=== PATIENT | male | born 1980 | race Caucasian/White ===

== ENCOUNTER 2021-02-02 14:41 | Emergency (ER) | payer SELFPAY ==
[2021-02-02 15:28] LABS: Absolute Lymphocytes (CBC) 1.9 K/uL (0.7-4.9); Basophils % 0.5 % (0-1.3); Lymphocytes % 29.2 % (15.3-44.8); MPV 7.1 fL (7.6-11.3); RBC Red Blood Cell Count 4.44 M/uL (4.33-5.43)
[2021-02-02 15:38] LABS: Urine Blood Negative (Negative); Urine Glucose Negative (Negative); Urine Protein Negative (Negative); Urine Specific Gravity <=1.005 (1.005-1.030)
[2021-02-02 15:47] LABS: ALT/SGPT 199 U/L (12-78); AST/SGOT 203 U/L (15-37); Albumin 3.5 g/dL (3.4-5.0); Alkaline Phosphatase 97 U/L (45-117); BUN Blood Urea Nitrogen 6 mg/dL (7-18); Bicarbonate 29 mmol/L (21-32); Bilirubin Direct < 0.1 mg/dL (0-0.2); Bilirubin Total 0.3 mg/dL (0.2-1.0); Glucose Level 75 mg/dL (74-106); Magnesium 2.1 mg/dL (1.8-2.4); NT PRO-BNP 26 pg/mL (<125); Potassium 3.7 mmol/L (3.5-5.1); Protein, Total 7.5 g/dL (6.4-8.2); Protime INR 0.9; Sodium Level 144 mmol/L (136-145); Troponin (Emerg Dept Use Only) 0.02 ng/mL (0.0-0.045)
--- NOTE | 2021-02-02 15:48 | RAD REPORT ---
EXAM DESCRIPTION: Francisco Javier Single View02/02/2021 3:40 pm CLINICAL HISTORY: Chest pain COMPARISON: 2007 FINDINGS: The lungs appear clear of acute infiltrate. The heart is normal size IMPRESSION: No acute abnormalities displayed
--- NOTE | 2021-02-02 15:51 | RAD REPORT ---
EXAM DESCRIPTION: CT - Head Brain Wo Cont - 02/02/2021 3:35 pm CLINICAL HISTORY: Seizure COMPARISON: 2007 TECHNIQUE: Computed axial tomography of the head was obtained. IV contrast was not requested. All CT scans are performed using dose optimization technique as appropriate and may include automated exposure control or mA/KV adjustment according to patient size. FINDINGS: An intracranial bleed is not seen . The ventricles are normal in caliber. No extra-axial fluid collection is noted. Fluid within the sinuses/ mastoids is not seen. IMPRESSION: No acute intracranial abnormality is seen. If patient's symptoms persist MRI of the bra in would be recommended.
[2021-02-02 16:08] LABS: Barbiturates NEGATIVE (NEGATIVE); Benzodiazepines NEGATIVE (NEGATIVE); Cocaine NEGATIVE (NEGATIVE); METHAMPHETAM POSITIVE (NEGATIVE); Methadone NEGATIVE (NEGATIVE); Opiates NEGATIVE (NEGATIVE); Phencyclidine NEGATIVE (NEGATIVE); THC Cannibis POSITIVE (NEGATIVE)
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
[2021-02-02 17:32] VITALS: BP 176/120; O2SAT 100
--- NOTE | 2021-02-03 16:01 | EKG ---
Test Date: 2021-02-02 Test Time: 15:11:46 Cartography Supervisor: TONY MEASUREMENT RESULTS: Intervals: Rate: 73 WA: 166 QRSD: 112 QT: 410 QTc: 451 Firth: P: 71 WA: 166 QRS: 7 T: 57 INTERPRETIVE STATEMENTS: Normal sinus rhythm with sinus arrhythmia Possible Left atrial enlargement Incomplete right bundle branch block Borderline ECG Compared to ECG 01/12/2015 23:07:51 No significant changes Electronically Signed On 02-03-21 16:00:01 CDT by Krishna Eaton
== END 2021-02-02 16:50 | disposition home or self-care (01) ==
LOC: ER 14:41
DX: F15.10 Other stimulant abuse, uncomplicated (principal); F12.10 Cannabis abuse, uncomplicated; F17.210 Nicotine dependence, cigarettes, uncomplicated; I25.2 Old myocardial infarction; Z88.0 Allergy status to penicillin
CPT/HCPCS: 36415; 70450; 71045; 80048; 80076; 80307; 81003; 83735; 83880; 84484; 85025; 85610; 93005; 99284

== ENCOUNTER 2022-04-14 22:52 | Emergency (ER) | payer SELFPAY ==
[2022-04-14 23:50] LABS: Absolute Lymphocytes (CBC) 1.6 K/uL (0.7-4.9); Hematocrit 41.7 % (39.6-49.0); Lymphocytes % 22.7 % (15.3-44.8); MCV 96.9 fL (80-100); MPV 6.5 fL (7.6-11.3)
[2022-04-14 23:54] LABS: Protime INR 0.96
[2022-04-14] MEDS ORDERED: LABETALOL 20 MG/4ML SYRINGE IV ONE (23:56)
[2022-04-15 00:04] LABS: Albumin 3.6 g/dL (3.4-5.0); Bilirubin Total 0.9 mg/dL (0.2-1.0); Potassium 3.5 mmol/L (3.5-5.1); Protein, Total 7.8 g/dL (6.4-8.2)
--- NOTE | 2022-04-15 02:38 | ER ---
Nurse's Notes [facility] Name: Donald Webster Age: 41 yrs Sex: Male : 1980 Arrival Date: 04/14/2022 Time: 22:57 Bed 19 Private MD: Diagnosis: Abdominal pain, unspecified;Constipation, unspecified;Hemoptysis Presentation: 04/14 23:03 Chief complaint: EMS states: Abdominal pain and c/o of coughing up blood. Coronavirus ke1 screen: Vaccine status: Patient reports being unvaccinated. Ebola Screen: No symptoms or risks identified at this time. Initial Sepsis Screen: Does the patient meet any 2 criteria? No. Patient's initial sepsis screen is negative. Does the patient have a suspected source of infection? No. Patient's initial sepsis screen is negative. Risk Assessment: Do you want to hurt yourself or someone else? Patient reports no desire to harm self or others. Onset of symptoms was April 14, 2022 at 20:00. 23:03 Method Of Arrival: EMS: [place] [id number] 23:03 Acuity: KENNY 3 ke1 Triage Assessment: 23:06 General: Appears in no apparent distress. Behavior is appropriate for age. Pain: ke1 Complains of pain in abdomen Pain does not radiate. Pain currently is 4 out of 10 on a pain scale. at worst was 4 out of 10 on a pain scale. level that patient reports is acceptable is 5 out of 10 on a pain scale. Neuro: Level of Consciousness is awake, alert, Oriented to person, place, time, situation. Cardiovascular:. Respiratory: Airway is patent Respiratory effort is even, unlabored, Respiratory pattern is regular, symmetrical. GI: Abdomen is flat. Historical: - Allergies: 23:05 PENICILLINS; ke1 - PMHx: 23:05 CVA; Myocardial infarction; ke1 - Immunization history:: Client reports having NOT received the Covid vaccine. - Social history:: Smoking status: Patient reports the use of cigarette tobacco products, smokes one-half pack cigarettes per day. - Family history:: not pertinent. - Hospitalizations: : No recent hospitalization is reported. Screenin:08 Abuse screen: Denies threats or abuse. Nutritional screening: No deficits noted. ke1 Tuberculosis screening: No symptoms or risk factors identified. Fall Risk None identified. Assessment: 23:41 Reassessment: see triage. ke1 04/15 01:00 Reassessment: Patient appears in no apparent distress at this time. Patient and/or ke1 family updated on plan of care and expected duration. Pain level reassessed. Patient is alert, oriented x 3, equal unlabored respirations, skin warm/dry/pink. Patient denies pain at this time. Patient states feeling better. 02:20 Reassessment: No changes from previously documented assessment. ke1 Vital Signs: 04/14 23:03 BP 175 / 134; Pulse 87; Resp 23; Temp 98.6; Pulse Ox 100% on R/A; Weight 66.22 kg; ke1 Height 5 ft. 11 in. (180.34 cm); Pain 4/10; 23:41 BP 215 / 149; Pulse 81; Resp 20; Pulse Ox 100% ; Pain 2/10; ke1 04/15 00:06 BP 200 / 131; Pulse 67; ke1 00:34 BP 206 / 141; Pulse 68; Resp 20; Pulse Ox 100% ; ke1 02:40 BP 170 / 94; Pulse 70; Resp 19; Pulse Ox 100% ; ke1 04/14 23:03 Body Mass Index 20.36 (66.22 kg, 180.34 cm) ke ED Course: 04/14 22:57 Patient arrived in ED. rn 22:58 Jonas Adhikari MD is Attending Physician. rn 23:00 Maintain EMS IV. Dressing intact. Site clean \T\ dry. Gauge \T\ site: 18 g L AC. ke 1 23:02 Ron Kapadia, RN is Primary Nurse. ke1 23:05 Triage completed. ke1 23:08 Arm band placed on. ke1 23:08 Bed in low position. Call light in reach. ke1 04/15 01:01 CT Abd/Pelvis - IV Contrast Only In Process Unspecified. EDMS 01:01 CT Chest For PE Angio In Process Unspecified. EDMS 02:40 No provider procedures requiring assistance completed. ke1 02:50 IV discontinued. ke1 Administered Medications: 04/14 23:52 Drug: Labetalol 10 mg Route: IV; Rate: 1 calculated rate; Site: left antecubital; ke1 23:57 Follow up: IV Status: Infusion continued ke1 04/15 02:41 Follow up: Response: No adverse reaction ke1 Medication: 02:40 VIS not applicable for this client. ke1 Outcome: 02:37 Discharge ordered by . rn 02:50 Discharged to home ambulatory. ke1 02:50 Condition: good 02:50 Discharge instructions given to patient. 02:52 Patient left the ED. ke1 Signatures: Dispatcher [employer] EDJonas Fry MD MD rn Ebrottie, Kouassi, RN RN ke1
--- NOTE | 2022-04-15 02:38 | EDPHYS ---
Physician Documentation [facility] Name: Donald Webster Age: 41 yrs Sex: Male : 1980 Arrival Date: 04/14/2022 Time: 22:57 Bed 19 Private MD: ED Physician Jonas Adhikari HPI: 04/14 23:08 This 41 yrs old Male presents to ER via EMS with complaints of coughing blood. rn 23:08 The patient or guardian reports cough, described as moderate. Onset: The rn symptoms/episode began/occurred today. Severity of symptoms: At their worst the symptoms were moderate, in the emergency department the symptoms have improved. Modifying factors: The symptoms are alleviated by nothing, the symptoms are aggravated by nothing. Associated signs and symptoms: Pertinent positives: Hemoptysis. The patient has not experienced similar symptoms in the past. The patient has not recently seen a physician. Patient reports several episodes of hemoptysis today. Denies any fever. Is a smoker. Denies trauma. Denies chest pain. Is a daily drinker and reports lower abdominal pain and swelling. Has not had a bowel movement in 3 days. Asked several times and states is not throwing up blood, is obvious to him that he is coughing up blood.. Historical: - Allergies: 23:05 PENICILLINS; ke1 - PMHx: 23:05 CVA; Myocardial infarction; ke1 - Immunization history:: Client reports having NOT received the Covid vaccine. - Social history:: Smoking status: Patient reports the use of cigarette tobacco products, smokes one-half pack cigarettes per day. - Family history:: not pertinent. - Hospitalizations: : No recent hospitalization is reported. ROS: 23:08 Constitutional: Negative for fever, chills, and weight loss, Eyes: Negative for injury, rn pain, redness, and discharge, Neck: Negative for injury, pain, and swelling, Cardiovascular: Negative for chest pain, palpitations, and edema, Respiratory: positive for hemoptysis and shortness of breath Abdomen/GI: Positive for abdominal pain and swelling Back: Negative for injury and pain, MS/Extremity: Negative for injury and deformity, Skin: Negative for injury, rash, and discoloration, Neuro: Negative for headache, weakness, numbness, tingling, and seizure. Exam: 23:08 Constitutional: Well nourished patient who is awake, alert, and in no acute distress. rn Head/Face: Normocephalic, atraumatic. Eyes: Periorbital areas with no swelling, redness, or edema. Cardiovascular: Regular rate and rhythm. No pulse deficits. Respiratory: mild tachypnea without retractions. Speaking full sentences Abdomen/GI: Soft, mild tenderness lower abdomen without masses Skin: Warm, dry MS/ Extremity: Pulses equal, no cyanosis Neuro: Awake and alert, GCS 15 Vital Signs: 23:03 BP 175 / 134; Pulse 87; Resp 23; Temp 98.6; Pulse Ox 100% on R/A; Weight 66.22 kg; ke1 Height 5 ft. 11 in. (180.34 cm); Pain 4/10; 23:41 BP 215 / 149; Pulse 81; Resp 20; Pulse Ox 100% ; Pain 2/10; ke1 04/15 00:06 BP 200 / 131; Pulse 67; ke1 00:34 BP 206 / 141; Pulse 68; Resp 20; Pulse Ox 100% ; ke1 02:40 BP 170 / 94; Pulse 70; Resp 19; Pulse Ox 100% ; ke1 04/14 23:03 Body Mass Index 20.36 (66.22 kg, 180.34 cm) ke MDM: 04/14 22:58 Patient medically screened. rn 04/15 02:35 Differential Diagnosis: Bronchitis Upper Respiratory Infection Viral Syndrome Pneumonia rn Other PE, lung cancer, smoking related illness, constipation, drug related illness. Data reviewed: vital signs, nurses notes, lab test result(s), EKG, radiologic studies, CT scan, and as a result, I will discharge patient. Counseling: I had a detailed discussion with the patient and/or guardian regarding: the historical points, exam findings, and any diagnostic results supporting the discharge/admit diagnosis, lab results, radiology results, the need for outpatient follow up, to return to the emergency department if symptoms worsen or persist or if there are any questions or concerns that arise at home. Response to treatment: the patient's symptoms have markedly improved after treatment, and as a result, I will discharge patient. Special discussion: I discussed with the patient/guardian in detail that at this point there is no indication for admission to the hospital. It is understood, however, that if the symptoms persist or worsen the patient needs to return immediately for re-evaluation. Based on the history and exam findings, there is no indication for further emergent testing or inpatient evaluation. I discussed with the patient/guardian the need to see the primary care provider for further evaluation of the symptoms. I discussed with the patient/guardian the need to see the mother helper for further evaluation of the symptoms. ED course: No hemoptysis since arrival, EMS did not see blood, normal H/H and no acute findings in CT chest/abdomen/pelvis. NO oxygen requirement. Sleeping comfortably. Will dc home with return precautions. Recommend smoking cessation.. 04/14 23:00 Order name: CBC with Diff; Complete Time: 00:00 rn 04/14 23:00 Order name: CMP; Complete Time: 00: rn 04/14 23:00 Order name: Lipase; Complete Time: : rn 04/14 23:00 Order name: BNP; Complete Time: 00: rn 04/14 23:00 Order name: PT-INR; Complete Time: 00:00 rn 04/14 23:00 Order name: Ptt, Activated; Complete Time: 00:00 rn 04/14 23:00 Order name: CT Abd/Pelvis - IV Contrast Only rn 04/14 23:00 Order name: IV Saline Lock; Complete Time: 23:40 rn 04/14 23:00 Order name: Labs collected and sent; Complete Time: 23:40 rn 04/14 23:00 Order name: CT Chest For PE Angio rn 04/14 23:00 Order name: SARS-COV-2 RT PCR (Document "Date of Onset" if Symptomatic); Complete Time: rn 00:32 04/14 23:00 Order name: Cardiac monitoring; Complete Time: 23:08 rn 04/14 23:00 Order name: O2 Sat Monitoring; Complete Time: 23:08 rn Administered Medications: 04/14 23:52 Drug: Labetalol 10 mg Route: IV; Rate: 1 calculated rate; Site: left antecubital; ke 23:57 Follow up: IV Status: Infusion continued ke1 04/15 02:41 Follow up: Response: No adverse reaction ke Disposition Summary: 04/15/22 02:37 Discharge Ordered Location: Home rn Problem: new rn Symptoms: have improved rn Condition: Stable rn Diagnosis - Abdominal pain, unspecified rn - Constipation, unspecified rn - Hemoptysis rn Followup: rn - With: Private Physician - When: As needed - Reason: Recheck today's complaints, Re-evaluation by your physician Discharge Instructions: - Discharge Summary Sheet rn - Abdominal Pain, Adult rn - Constipation, Adult rn - Hemoptysis rn Forms: - Medication Reconciliation Form rn - Thank You Letter rn - Antibiotic journeyman electrician - Prescription Opioid Use rn Signatures: Dispatcher [employer] Jonas Dickey MD MD rn Ebrottie, Kouassi, RN RN ke1
[2022-04-15 02:58] VITALS: TEMP 98.6; O2SAT 100
[2022-04-15 03:06] VITALS: BP 170/94
--- NOTE | 2022-04-15 10:16 | RAD REPORT ---
EXAM DESCRIPTION: CT - Abdomen Pelvis W Contrast - 04/15/2022 6:00 am CLINICAL HISTORY: Abd pain and distension TECHNIQUE: Axial computed tomography images of the abdomen and pelvis with intravenous contrast. S agittal and coronal reformatted images were created and reviewed. This CT exam was performed using one or more of the following dose reduction techniques: automated exposure control, adjustment of t he mA and/or kV according to patient size, and/or use of iterative reconstruction technique. COMPARISON: No relevant prior studies available. FINDINGS: Lung bases: Left lower lobe calcified granuloma. ABDOMEN: Liver: The liver is diffusely low in density compatible with steatosis. Gallbladder and bile ducts: Unremarkable. No calcified stones. No ductal dilation. Pancreas: Unremarkable. No mass. No ductal dilation. Spleen: Unremarkable. No splenomegaly. Adrenals: Unremarkable. No mass. Kidneys and ureters: 2.4 cm right renal cyst. Additional subcentimeter cortical hypodensities bilat erally which are too small to characterize. No follow-up imaging is necessary. No calculi. No hydrone phrosis. Stomach and bowel: Moderate stool proximal to mid large bowel. No obstruction. No appreciable mucos al thickening. PELVIS: Appendix: Normal caliber appendix. No findings to suggest acute appendicitis. Bladder: The urinary bladder is distended. Reproductive: Unremarkable as visualized. ABDOMEN and PELVIS: Intraperitoneal space: Unremarkable. No free air. No significant fluid collection. Bones/joints: Grade 1 retrolisthesis of L5 on S1. Moderate degenerative changes at this level. No a cute fracture. No dislocation. Soft tissues: Unremarkable. Vasculature: Mild atherosclerotic disease. No abdominal aortic aneurysm. Lymph nodes: Unremarkable. No enlarged lymph nodes. IMPRESSION: 1. No acute abnormality identified within the abdomen and pelvis. 2. Other findings as above. Electronically signed by: April Cunningham MD 04/15/2022 1:27 AM CDT Due to temporary technical issues with the PACS/Fluency reporting system, reports are being signed by the in house radiologists without review as a courtesy to insure prompt reporting. The interpreting radiologist is fully responsible for the content of the report.
--- NOTE | 2022-04-15 11:30 | RAD REPORT ---
EXAM DESCRIPTION: CT - Chest For Pe Angio - 04/15/2022 6:01 am ADDENDUM #1 Re: AIDOC algorithm findings: A false positive is noted from the algorithm in a left-sided pulmonary venous (not pulmonary arterial) branch. No evidence of acute pulmonary embolus. Electronically signed by: López Hernández MD 04/15/2022 4:27 AM CDT End of Addendum EXAM DESCRIPTION: CT Angiography Chest With Intravenous Contrast CLINICAL HISTORY: The patient is 41 years old and is Male; smoker, hemoptysis TECHNIQUE: Axial computed tomographic angiography images of the chest with intravenous contrast. T his CT exam was performed using one or more of the following dose reduction techniques: automated e xposure control, adjustment of the mA and/or kV according to patient size, and/or use of iterative re construction technique. MIP reconstructed images were created and reviewed. Oblique reformatted images were created and reviewed. DLP: 1115 mGy*cm COMPARISON: None. FINDINGS: PULMONARY ARTERIES: Unremarkable. No pulmonary embolism. AORTA: No acute findings. No thoracic aortic aneurysm. LUNGS: Partially calcified pleural-based nodule in the left lower lobe measuring 6.5 cm. No focal consolidation. PLEURAL SPACE: No significant effusion. No pneumothorax. HEART: Unremarkable. No cardiomegaly. No significant pericardial effusion. No evidence of RV dysfunction. BONES/JOINTS: No acute fracture. No dislocation. SOFT TISSUES: Unremarkable. LYMPH NODES: Unremarkable. No enlarged lymph nodes. LIVER: Hepatic steatosis. KIDNEYS AND URETERS: Right renal cyst measuring 2.4 cm. IMPRESSION: 1. No pulmonary embolism. No acute intrathoracic abnormality. 2. Partially calcified pleural-based nodule in the left lower lobe measuring 6.5 cm. 3. Hepatic steatosis. Electronically signed by: Rg Chavez DO 04/15/2022 1:40 AM CDT Due to temporary technical issues with the PACS/Fluency reporting system, reports are being signed by the in house radiologists without review as a courtesy to insure prompt reporting. The interpreting radiologist is fully responsible for the content of the report.
== END 2022-04-15 02:52 | disposition home or self-care (01) ==
LOC: ER 22:52
DX: R04.2 Hemoptysis (principal); R10.9 Unspecified abdominal pain; K59.00 Constipation, unspecified; F17.210 Nicotine dependence, cigarettes, uncomplicated; Z88.0 Allergy status to penicillin; Z86.73 Personal history of transient ischemic attack (TIA), and cerebral infarction without residual deficits
CPT/HCPCS: 36415; 71275; 74177; 80053; 83690; 83880; 85025; 85610; 85730; 96374; 99284; Q9967; U0003

== ENCOUNTER 2022-04-15 06:46 | Emergency (ER) | payer SELFPAY ==
[2022-04-15 07:40] LABS: Urine Blood Trace-intact (Negative); Urine Glucose Negative (Negative); Urine Protein 2+ (Negative); Urine Specific Gravity 1.025 (1.005-1.030); Urine pH 6.5 (5.0-7.0)
[2022-04-15 08:02] LABS: Barbiturates NEGATIVE (NEGATIVE); Benzodiazepines NEGATIVE (NEGATIVE); Cocaine NEGATIVE (NEGATIVE); METHAMPHETAM POSITIVE (NEGATIVE); Methadone NEGATIVE (NEGATIVE); Opiates NEGATIVE (NEGATIVE); Phencyclidine NEGATIVE (NEGATIVE); THC Cannibis POSITIVE (NEGATIVE)
--- NOTE | 2022-04-15 08:50 | EDPHYS ---
Physician Documentation [facility] Name: Donald Webster Age: 41 yrs Sex: Male : 1980 Arrival Date: 04/15/2022 Time: 06:48 Bed 18 Private MD: ED Physician Oscar Ashraf HPI: 04/15 08:44 This 41 yrs old Male presents to ER via Ambulatory with complaints of Psych gracia Problem. 08:44 The patient presents to the emergency department with anxiety, paranoia. Onset: The gracia symptoms/episode began/occurred 3 day(s) ago. Past psychiatric history: Prior diagnosis: bipolar disorder, schizophrenia. Associated signs and symptoms: The patient has no apparent associated signs or symptoms. Severity of symptoms: At their worst the symptoms were mild in the emergency department the symptoms are unchanged. The patient has not experienced similar symptoms in the past. Historical: - Allergies: 07:17 PENICILLINS; ss - PMHx: 07:17 CVA; Myocardial infarction; ss - Social history:: Smoking status: Patient reports the use of cigarette tobacco products. - Family history:: not pertinent. ROS: 08:44 Constitutional: Negative for fever, chills, and weight loss, Eyes: Negative for injury, gracia pain, redness, and discharge, ENT: Negative for injury, pain, and discharge, Neck: Negative for injury, pain, and swelling, Cardiovascular: Negative for chest pain, palpitations, and edema, Respiratory: Negative for shortness of breath, cough, wheezing, and pleuritic chest pain, Abdomen/GI: Negative for abdominal pain, nausea, vomiting, diarrhea, and constipation, Back: Negative for injury and pain, : Negative for injury, bleeding, discharge, and swelling, MS/Extremity: Negative for injury and deformity, Skin: Negative for injury, rash, and discoloration, Neuro: Negative for headache, weakness, numbness, tingling, and seizure, Allergy/Immunology: Negative for hives, rash, and allergies, Endocrine: Negative for neck swelling, polydipsia, polyuria, polyphagia, and marked weight changes, Hematologic/Lymphatic: Negative for swollen nodes, abnormal bleeding, and unusual bruising. 08:44 Psych: Positive for anxiety. Exam: 08:44 Constitutional: This is a well developed, well nourished patient who is awake, alert, gracia and in no acute distress. Head/Face: Normocephalic, atraumatic. Eyes: Pupils equal round and reactive to light, extra-ocular motions intact. Lids and lashes normal. Conjunctiva and sclera are non-icteric and not injected. Cornea within normal limits. Periorbital areas with no swelling, redness, or edema. ENT: Nares patent. No nasal discharge, no septal abnormalities noted. Tympanic membranes are normal and external auditory canals are clear. Oropharynx with no redness, swelling, or masses, exudates, or evidence of obstruction, uvula midline. Mucous membranes moist. Neck: Trachea midline, no thyromegaly or masses palpated, and no cervical lymphadenopathy. Supple, full range of motion without nuchal rigidity, or vertebral point tenderness. No Meningismus. Chest/axilla: Normal chest wall appearance and motion. Nontender with no deformity. No lesions are appreciated. Cardiovascular: Regular rate and rhythm with a normal S1 and S2. No gallops, murmurs, or rubs. Normal PMI, no JVD. No pulse deficits. Respiratory: Lungs have equal breath sounds bilaterally, clear to auscultation and percussion. No rales, rhonchi or wheezes noted. No increased work of breathing, no retractions or nasal flaring. Abdomen/GI: Soft, non-tender, with normal bowel sounds. No distension or tympany. No guarding or rebound. No evidence of tenderness throughout. Back: No spinal tenderness. No costovertebral tenderness. Full range of motion. Male : Normal genitalia with no discharge or lesions. Skin: Warm, dry with normal turgor. Normal color with no rashes, no lesions, and no evidence of cellulitis. MS/ Extremity: Pulses equal, no cyanosis. Neurovascular intact. Full, normal range of motion. Neuro: Awake and alert, GCS 15, oriented to person, place, time, and situation. Cranial nerves II-XII grossly intact. Motor strength 5/5 in all extremities. Sensory grossly intact. Cerebellar exam normal. Normal gait. 08:44 Psych: Behavior/mood is pleasant, Affect is calm, Oriented to person, place, time, Patient has no thoughts/intents to harm self or others. Judgement / Insight is normal. Memory is normal. 08:50 ECG was reviewed by the Attending Physician. [facility] Vital Signs: 07:14 BP 195 / 124 LA Sitting (auto/reg); Resp 20 S; Pulse Ox 97% on R/A; Pain 0/10; mb8 07:14 Pulse 86; Pulse Ox 98% on R/A; ss 08:00 BP 197 / 115 Supine; Pulse 65 MON; mb8 08:02 BP 199 / 117 Sitting; Pulse 70; mb8 08:04 BP 175 / 135 Standing; Pulse 67; mb8 NIH Stroke Scale Scores: 08:44 NIHSS Score: 0 [facility] Harmeet Coma Score: 08:44 Eye Response: spontaneous(4). Verbal Response: oriented(5). Motor Response: obeys [facility] commands(6). Total: 15. MDM: 07:12 Patient medically screened. gracia 08:47 Differential diagnosis: drug withdrawal. acute psychotic break, depression, psychosis gracia secondary to non-compliance. Data reviewed: vital signs, nurses notes, lab test result(s), CBC, drug level(s), electrolytes, hepatic panel, EKG. Data interpreted: school lunch monitor: rate is 67 beats/min, rhythm is regular. Counseling: I had a detailed discussion with the patient and/or guardian regarding: the historical points, exam findings, and any diagnostic results supporting the discharge/admit diagnosis, lab results. 04/15 07:15 Order name: Urine Drug Screen [facility] 04/15 07:15 Order name: EKG; Complete Time: 07:16 [facility] 04/15 07:15 Order name: EKG - Nurse/Tech; Complete Time: 08:20 [facility] 04/15 07:40 Order name: Urine Dipstick-Ancillary EDRI 04/15 07:15 Order name: Suicide Screening ([place]); Complete Time: 07:43 [facility] 04/15 07:15 Order name: Urine Dipstick-Ancillary (obtain specimen); Complete Time: 07:42 [facility] EC:50 Rate is 63 beats/min. Rhythm is regular. QRS [place] is Normal. [place] interval is normal. QRS gracia interval is normal. QT interval is normal. No Q waves. T waves are Normal. No ST changes noted. Clinical impression: NSR w/ Non-specific ST/T Changes and No evidence of ischemia. Interpreted by me. Reviewed by me. Administered Medications: 08:33 CANCELLED (Physician Discretion): NS 0.9% 1000 ml IV at 1 bolus Per protocol; 1000 mL mb8 bolus Disposition Summary: 04/15/22 08:49 Discharge Ordered Location: Home gracia Problem: new gracia Symptoms: have improved gracia Condition: Stable gracia Diagnosis - Adverse effect of amphetamines - paranoid behavior gracia - Abuse of other non-psychoactive substances gracia Followup: gracia - With: Private Physician - When: 2 - 3 days - Reason: Recheck today's complaints, Continuance of care, Re-evaluation by your physician Discharge Instructions: - Discharge Summary Sheet gracia - Amphetamines Use Disorder gracia - Substance Use Disorder gracia - Supporting Someone With an Addiction gracia - Methamphetamines Use Disorder gracia - Substance Use Disorder and Mental Illness gracia - Supporting Someone With Substance Use Disorder gracia Forms: - Medication Reconciliation Form gracia - Thank You Letter gracia - Antibiotic Education gracia - Prescription Opioid Use gracia NIH Stroke Scale - NIH Stroke Score Date: 04/15/2022 Time: 08:44 Total Score = 0 1a. Level of Consciousness (LOC) - 0(Alert) 1b. Level of Consciousness (LOC) (Month \T\ Age) - 0(Both) 1c. LOC Commands (Open \T\ Closes Eyes/Cns) - 0(Both) 2. Best Gaze (Lateral Gaze Paresis) - 0(Normal) 3. Visual Field Loss - 0(No visual loss) 4. Facial Palsy - 0(Normal) 5a. Left Arm: Motor (10-second hold) - 0(No drift) 5b. Right Arm: Motor (10-second hold) - 0(No drift) 6a. Left Leg: Motor (5-second hold - always test supine) - 0(No drift) 6b. Right Leg: Motor (5-second hold - always test supine) - 0(No drift) 7. Limb Ataxia (finger/nose \T\ heel/chávez - test with eyes open) - 0(Absent) 8. Sensory Loss (pinprick arms/legs/face) - 0(Normal) 9. Best Language: Aphasia (description/naming/reading) - 0(No aphasia) 10. Dysarthria (speech clarity - read or repeat words) - 0(Normal) 11. Extinction and Inattention (visual/tactile/auditory/spatial/personal) - 0(No abnormality) Initials: [facility] Signatures: Dispatcher [employer] Oscar Blackwood MD MD cha Smirch, Shelby, RN RN Vasquez Machado RN RN mb8 Corrections: (The following items were deleted from the chart) 08:20 07:15 Labs collected and sent ordered. gracia szymanski 08: 07:15 IV Saline Lock ordered. gracia mbDonald : 07:15 NS 0.9% 1000 ml IV at 1 bolus Per protocol; 1000 mL bolus ordered. gracia adorno
--- NOTE | 2022-04-15 08:50 | ER ---
Nurse's Notes [facility] Name: Donald Webster Age: 41 yrs Sex: Male : 1980 Arrival Date: 04/15/2022 Time: 06:48 Bed 18 Private MD: Diagnosis: Adverse effect of amphetamines-paranoid behavior;Abuse of other non-psychoactive substances Presentation: 04/15 07:11 Chief complaint: Patient states: "I don't want drugs or anything like that, but I think ss I might need to see a psychiatrist because I'm not making these things up, but If I am I guess I am crazy." Pt reports that he has been seen in the ER last night and was discharged, but unknown person in the parking lot would not let him leave. Denies SI/ HI. Coronavirus screen: Client denies travel out of the [place] in the last 14 days. Ebola Screen: Patient denies exposure to infectious person. Patient denies travel to an Ebola-affected area in the 21 days before illness onset. 07:11 Method Of Arrival: Ambulatory ss 07:16 Initial Sepsis Screen: Does the patient meet any 2 criteria? No. Patient's initial ss sepsis screen is negative. Does the patient have a suspected source of infection? No. Patient's initial sepsis screen is negative. Risk Assessment: Do you want to hurt yourself or someone else? Patient reports no desire to harm self or others. Onset of symptoms is unknown. 07:16 Acuity: KENNY 3 ss Historical: - Allergies: 07:17 PENICILLINS; ss - PMHx: 07:17 CVA; Myocardial infarction; ss - Social history:: Smoking status: Patient reports the use of cigarette tobacco products. - Family history:: not pertinent. Screenin:23 Abuse screen: Denies threats or abuse. Denies injuries from another. Nutritional mb8 screening: No deficits noted. Tuberculosis screening: No symptoms or risk factors identified. Fall Risk None identified. Assessment: 07:22 General: Appears in no apparent distress. comfortable, Behavior is cooperative, mb8 anxious. Pain: Denies pain. Neuro:. 07:57 Reassessment: No changes from previously documented assessment. Patient and/or family mb8 updated on plan of care and expected duration. Pain level reassessed. Patient is alert, oriented x 3, equal unlabored respirations, skin warm/dry/pink. Patient denies pain at this time. Psych: 07:24 [place] Suicide Severity Screening: In the past month, have you wished you were mb8 or wished you could go to sleep and not wake up? Patient responds "No." "In the past month, have you actually had any thoughts of killing yourself?" Patient responds "no." "In your lifetime, have you ever done anything, started to do anything, or prepared to do anything to end your life?" Patient responds "no.". Subjective: Patient's mood is Anxious Delusions are Patient reports, "People are taking bums and throwing them away under buildings to dispose of them" Denies any SI or HI. Hallucinations are auditory. Objective: Patient is cooperative, restless, Speech is rambling, Affect is appropriate. Safety Checks: Door is open. 07:24 Pt denies substance abuse. mb8 08:35 Interventions: n/a. mb8 08:35 Commitment: N/A. mb8 Vital Signs: 07:14 BP 195 / 124 LA Sitting (auto/reg); Resp 20 S; Pulse Ox 97% on R/A; Pain 0/10; mb8 07:14 Pulse 86; Pulse Ox 98% on R/A; ss 08:00 BP 197 / 115 Supine; Pulse 65 MON; mb8 08:02 BP 199 / 117 Sitting; Pulse 70; mb8 08:04 BP 175 / 135 Standing; Pulse 67; mb8 [place] Coma Score: 08:44 Eye Response: spontaneous(4). Verbal Response: oriented(5). Motor Response: obeys gracia commands(6). Total: 15. NIH Stroke Scale Scores: 08:44 NIHSS Score: 0 [facility] ED Course: 06:48 Patient arrived in ED. ja2 07:11 Oscar Ashraf MD is Attending Physician. gracia 07:13 Vasquez Machado, RN is Primary Nurse. mb8 07:17 Triage completed. ss 07:17 Arm band placed on right wrist. ss 07:17 Patient has correct armband on for positive identification. Bed in low position. Call mb8 light in reach. 07:24 No provider procedures requiring assistance completed. mb8 08:44 Primary Nurse role handed off by Vasquez Machado, RN eb 08:52 Patient did not have IV access during this emergency room visit. Administered Medications: 08:33 CANCELLED (Physician Discretion): NS 0.9% 1000 ml IV at 1 bolus Per protocol; 1000 mL mb8 bolus Medication: 08:34 VIS not applicable for this client. mb8 Outcome: 08:49 Discharge ordered by . [facility] 08:52 Discharged to home ambulatory. 08:52 Condition: good 08:52 Discharge instructions given to patient, Instructed on discharge instructions, follow up and referral plans. Demonstrated understanding of instructions, follow-up care. 08:53 Patient left the ED. NIH Stroke Scale - NIH Stroke Score Date: 04/15/2022 Time: 08:44 Total Score = 0 1a. Level of Consciousness (LOC) - 0(Alert) 1b. Level of Consciousness (LOC) (Month \\T\\ Age) - 0(Both) 1c. LOC Commands (Open \\T\\ Closes Eyes/Circular Saw Edge Fuser) - 0(Both) 2. Best Gaze (Lateral Gaze Paresis) - 0(Normal) 3. Visual Field Loss - 0(No visual loss) 4. Facial Palsy - 0(Normal) 5a. Left Arm: Motor (10-second hold) - 0(No drift) 5b. Right Arm: Motor (10-second hold) - 0(No drift) 6a. Left Leg: Motor (5-second hold - always test supine) - 0(No drift) 6b. Right Leg: Motor (5-second hold - always test supine) - 0(No drift) 7. Limb Ataxia (finger/nose \\T\\ heel/chávez - test with eyes open) - 0(Absent) 8. Sensory Loss (pinprick arms/legs/face) - 0(Normal) 9. Best Language: Aphasia (description/naming/reading) - 0(No aphasia) 10. Dysarthria (speech clarity - read or repeat words) - 0(Normal) 11. Extinction and Inattention (visual/tactile/auditory/spatial/personal) - 0(No abnormality) Initials: gracia Signatures: Oscar Ashraf MD MD cha Smirch, Shelby, RN RN Arina Laughlin Jessica ja2 Bates, Michael, RN RN mb8
[2022-04-15 08:58] VITALS: O2SAT 97
[2022-04-15 09:04] VITALS: BP 175/135
--- NOTE | 2022-04-18 08:16 | EKG ---
Test Date: 2022-04-15 Test Time: 08:05:35 Deputy Prosecuting Attorney: NNEKA MEASUREMENT RESULTS: Intervals: Rate: 63 MN: 126 QRSD: 108 QT: 432 QTc: 442 [place]: P: 25 MN: 126 QRS: 31 T: 47 INTERPRETIVE STATEMENTS: Normal sinus rhythm Incomplete right bundle branch block Lateral infarct, age undetermined Abnormal ECG Compared to ECG 02/02/2021 15:11:46 Myocardial infarct finding now present Sinus arrhythmia no longer present Electronically Signed On 04-18-22 08:07:18 CDT by Krishna Eaton
== END 2022-04-15 08:53 | disposition home or self-care (01) ==
LOC: ER 06:46
DX: F22 Delusional disorders (principal); F55.8 Abuse of other non-psychoactive substances; T43.625A Adverse effect of amphetamines, initial encounter; Z86.73 Personal history of transient ischemic attack (TIA), and cerebral infarction without residual deficits; Z72.0 Tobacco use
CPT/HCPCS: 80307; 81003; 93005; 99284